=== PATIENT | male | born 1980 | race Caucasian/White ===

== ENCOUNTER 2018-11-19 07:47 | Inpatient (IN) | payer OTHER ==
[2018-11-19] MEDS ORDERED: KETOROLAC 30 MG/ML 1 ML VIAL IVP STA (08:27)
[2018-11-19] MEDS ORDERED: ONDANSETRON 4 MG/2 ML VIAL IVP STA (08:27)
[2018-11-19] MEDS ORDERED: SODIUM CHLORIDE 0.9% 1,000 ML IV STA ×2 (08:27)
--- NOTE | 2018-11-19 08:33 | ED ---
Abdominal Pain HPI - General Source: patient, RN notes reviewed, old records reviewed Mode of arrival: ambulatory Limitations: no limitations <Nettie Olson - Last Filed: 11/19/18 10:58> <Delicia Quinones - Last Filed: 11/19/18 12:49> - General Chief Complaint: Abdominal Pain Stated Complaint: Poss herina Time Seen by Provider: 11/19/18 08:00 - History of Present Illness Initial Comments: 38-year-old male presents to the emergency department today with complaints of LLQ pain. Patient reports that symptoms started yesterday evening while he was at work. He states he developed a fever last night. After taking Motrin to see her subsided. Patient states that he's had frequent urination and complains of pain with urinating and pain with passing gas. He states he's had a normal bowel movement. He denies any significant past medical history. Patient states that he has no fevers or chills at this time. (Nettie Olson) - Related Data Allergies Allergy/AdvReac Type Severity Reaction Status Date / Time No Known Allergies Allergy Verified 11/19/18 11:00 Review of Systems ROS Other: All systems not noted in ROS Statement are negative. <Nettie Olson - Last Filed: 11/19/18 10:58> ROS Other: All systems not noted in ROS Statement are negative. <Delicia Quinones - Last Filed: 11/19/18 12:49> ROS Statement: Those systems with pertinent positive or pertinent negative responses have been documented in the HPI. Past Medical History Past Medical History: No Reported History History of Any Multi-Drug Resistant Organisms: None Reported Past Surgical History: Orthopedic Surgery Additional Past Surgical History / Comment(s): KNEE SURGERY Past Psychological History: No Psychological Hx Reported Smoking Status: Heavy tobacco smoker Past Alcohol Use History: None Reported Past Drug Use History: None Reported <Nettie Olson - Last Filed: 11/19/18 10:58> General Exam Limitations: no limitations General appearance: alert, in no apparent distress Head exam: Present: atraumatic, normocephalic, normal inspection Eye exam: Present: normal appearance, PERRL, EOMI. Absent: scleral icterus, conjunctival injection, periorbital swelling ENT exam: Present: normal exam, mucous membranes moist Neck exam: Present: normal inspection. Absent: tenderness, meningismus, lymphadenopathy Respiratory exam: Present: normal lung sounds bilaterally. Absent: respiratory distress, wheezes, rales, rhonchi, stridor Cardiovascular Exam: Present: regular rate, normal rhythm, normal heart sounds. Absent: systolic murmur, diastolic murmur, rubs, gallop, clicks GI/Abdominal exam: Present: soft, tenderness (Left lower quadrant tenderness. No guarding.), normal bowel sounds. Absent: distended, guarding, rebound, rigid Extremities exam: Present: normal inspection, full ROM, normal capillary refill. Absent: tenderness, pedal edema, joint swelling, calf tenderness Back exam: Present: normal inspection Neurological exam: Present: alert, oriented X3, CN II-XII intact Psychiatric exam: Present: normal affect, normal mood Skin exam: Present: warm, dry, intact, normal color. Absent: rash <Nettie Olson - Last Filed: 11/19/18 10:58> - General Exam Comments Initial Comments: 38-year-old male. Alert and oriented. No significant distress. (Nettie Olson) Course Vital Signs 11/19/18 11/19/18 11/19/18 07:47 08:58 11:16 Temperature 98.2 F 98.7 F Pulse Rate 108 H 93 88 Respiratory 18 16 18 Rate Blood Pressure 134/96 130/85 127/86 O2 Sat by Pulse 99 98 99 Oximetry Medical Decision Making - Lab Data Result diagrams: 11/19/18 08:09 11/19/18 08:09 - Radiology Data Radiology results: report reviewed <Nettie Olson - Last Filed: 11/19/18 10:58> - Lab Data Result diagrams: 11/19/18 08:09 11/19/18 08:09 <Delicia Quinones - Last Filed: 11/19/18 12:49> - Medical Decision Making Particular male presents with fever complaints of left lower quadrant abdominal pain. Patient has had fever yesterday. Patient has had no significant past medical history. On exam is tender and guarding of the left lower quadrant. Patient CT shows evidence of diverticulitis with a small amount of peritoneal air. Patient was started on Zosyn. White blood cell count elevated at 13,000. Patient will be admitted with consult to surgery. Dr. Quinones discussed case with Dr. Hurd has not. (Nettie Olson) Patient care was discussed with Dr. Matamoros the admitting physician and Dr. Sparkle brewer consulting surgeon. Patient admitted for acute diverticulitis with microperforation with no peritonitis. (Delicia Quinones) - Lab Data Lab Results 11/19/18 11/19/18 11/19/18 Range/Units 08:09 08:09 08:09 WBC 13.0 H (3.8-10.6) k/uL RBC 5.80 (4.30-5.90) m/uL Hgb 15.2 (13.0-17.5) gm/dL Hct 44.9 (39.0-53.0) % MCV 77.4 L (80.0-100.0) fL MCH 26.3 (25.0-35.0) pg MCHC 33.9 (31.0-37.0) g/dL RDW 13.5 (11.5-15.5) % Plt Count 228 (150-450) k/uL Neutrophils % 77 % Lymphocytes % 13 % Monocytes % 7 % Eosinophils % 1 % Basophils % 0 % Neutrophils # 10.0 H (1.3-7.7) k/uL Lymphocytes # 1.8 (1.0-4.8) k/uL Monocytes # 0.9 (0-1.0) k/uL Eosinophils # 0.2 (0-0.7) k/uL Basophils # 0.0 (0-0.2) k/uL Sodium 140 (137-145) mmol/L Potassium 4.3 (3.5-5.1) mmol/L Chloride 106 (98-107) mmol/L Carbon Dioxide 25 (22-30) mmol/L Anion Gap 9 mmol/L BUN 10 (9-20) mg/dL Creatinine 0.96 (0.66-1.25) mg/dL Est GFR (CKD-EPI)AfAm >90 (>60 ml/min/1.73 sqM) Est GFR (CKD-EPI)NonAf >90 (>60 ml/min/1.73 sqM) Glucose 107 H (74-99) mg/dL Calcium 9.6 (8.4-10.2) mg/dL Total Bilirubin 1.7 H (0.2-1.3) mg/dL AST 31 (17-59) U/L ALT 68 (21-72) U/L Alkaline Phosphatase 70 (38-126) U/L Total Protein 7.3 (6.3-8.2) g/dL Albumin 4.7 (3.5-5.0) g/dL Amylase 49 (30-110) U/L Lipase 86 (23-300) U/L Urine Color Yellow Urine Appearance Clear (Clear) Urine pH 7.0 (5.0-8.0) Ur Specific [place] 1.022 (1.001-1.035) Urine Protein Trace H (Negative) Urine Glucose (UA) Negative (Negative) Urine Ketones 1+ H (Negative) Urine Blood Negative (Negative) Urine Nitrite Negative (Negative) Urine Bilirubin Negative (Negative) Urine Urobilinogen <2.0 (<2.0) mg/dL Ur Leukocyte Esterase Negative (Negative) - Radiology Data Laboratory changes in left lower quadrant adjacent to segment of thickened sigmoid colon findings compatible with acute diverticulitis. Single punctate area of air with inflammatory change could be a loculated extraluminal air or within the diverticulum. Free air not otherwise identified. Incidental note made of possible gallstone at the neck of the gallbladder. (Nettie Olson) Disposition Is patient prescribed a controlled substance at d/c from ED?: No Time of Disposition: 11:00 <Nettie Olson - Last Filed: 11/19/18 10:58> <Delicia Quinones - Last Filed: 11/19/18 12:49> Clinical Impression: Leukocytosis, Diverticulitis of intestine with perforation Disposition: ADMITTED IP TO THIS HOSP Condition: Stable Referrals: [facility],Clinic [Primary Care Provider] - 1-2 days
[2018-11-19 08:35] LABS: Basophils % (A) 0 %; Eosinophils # (A) 0.2 k/uL (0-0.7); Eosinophils % (A) 1 %; HCT 44.9 % (39.0-53.0); HGB 15.2 gm/dL (13.0-17.5); Lymphocytes # (A) 1.8 k/uL (1.0-4.8); Lymphocytes % (A) 13 %; MCH 26.3 pg (25.0-35.0); MCHC 33.9 g/dL (31.0-37.0); MCV 77.4 fL (80.0-100.0); Mean Platelet Volume 6.9; Monocytes # (A) 0.9 k/uL (0-1.0); Monocytes % (A) 7 %; Neutrophils % (A) 77 %; Platelet Count 228 k/uL (150-450); RDW 13.5 % (11.5-15.5)
[2018-11-19 08:38] LABS: Appearance,Urine Clear (Clear); Bilirubin,Urine Negative (Negative); Blood,Urine Negative (Negative); Color,Urine Yellow; Glucose,Urine (UA) Negative (Negative); Ketones,Urine 1+ (Negative); Leukocyte Esterase,Urine Negative (Negative); Nitrite,Urine Negative (Negative); Protein,Urine Trace (Negative); Specific Gravity,Urine 1.022 (1.001-1.035); Urobilinogen,Urine <2.0 mg/dL (<2.0)
[2018-11-19 08:44] LABS: ALT 68 U/L (21-72); AST 31 U/L (17-59); Albumin 4.7 g/dL (3.5-5.0); Alkaline Phosphatase 70 U/L (38-126); Amylase 49 U/L (30-110); Anion Gap 9 mmol/L; Blood Urea Nitrogen 10 mg/dL (9-20); Calcium 9.6 mg/dL (8.4-10.2); Carbon Dioxide 25 mmol/L (22-30); Chloride 106 mmol/L (98-107); Glucose 107 mg/dL (74-99); Lipase 86 U/L (23-300); Potassium 4.3 mmol/L (3.5-5.1); Sodium 140 mmol/L (137-145); Total Bilirubin 1.7 mg/dL (0.2-1.3); Total Protein 7.3 g/dL (6.3-8.2)
--- NOTE | 2018-11-19 10:52 | CT ---
EXAMINATION TYPE: CT abdomen pelvis w con DATE OF EXAM: 11/19/2018 COMPARISON: None INDICATION: LLQ pain for 2 days with nausea DLP: 1750.9 mGycm, Automated exposure control for dose reduction was used. CONTRAST: 100 mL of Isovue 300. Study performed without Oral Contrast TECHNIQUE: Axial images were obtained from above the diaphragm to the pubic rami in the axial plane a t 5 mm thick sections. Reconstructed images are reviewed on the computer in the coronal plane. FINDINGS: Limited CT sections are obtained the lung bases. The lung bases are clear. CT ABDOMEN: Liver: There is likely some mild fatty change in the liver. Spleen: Normal Pancreas: Normal Adrenal glands: The adrenal glands are normal. Gallbladder: Small gallstone is suspected at the neck of the gallbladder. Series 201 image 27. No per icholecystic fluid or obvious wall thickening is evident. Kidneys: No masses are evident. No hydronephrosis is present. No cysts are present. Delayed images were obtained through the kidneys, which remain unremarkable. Aorta: Normal Inferior vena cava: Normal. CT PELVIS: Loops of bowel within the abdomen are normal. Within the pelvis or inflammatory changes adjacent to a thickened loop of sigmoid colon. Tiny amount of air is adjacent may be within a diverticulum. This could be loculated within the inflammatory change. Free air is not otherwise identified within the a bdomen. Series 201 image 673 findings are highly suggestive for acute diverticulitis. Appendix: Normal as visualized. Urinary bladder: Normal. Genitourinary structures: Prostate is unremarkable. Osseous structures: No suspicious lytic or sclerotic lesions. IMPRESSIONS: 1. Inflammatory change in the left lower quadrant adjacent to segment of thickened sigmoid colon. Fi ndings are compatible with acute diverticulitis. Single punctate area of air within this inflammatory change could be loculated extraluminal air or air within the diverticulum. Free air not otherwise id entified. 2. Report was called to the emergency room physician by Dr. Brian by telephone at time of interpret ation 1046 hours 11/19/2018. 3. Incidental note made of possible gallstone at the neck of the gallbladder.
[2018-11-19] MEDS ORDERED: NALOXONE 0.4 MG/ML 1 ML VIAL IV PRN ×2 (10:54→11:00)
[2018-11-19] MEDS ORDERED: MORPHINE SULFATE 4 MG/ML SYRINGE IVP STA (10:58)
[2018-11-19] MEDS ORDERED: PIPERACILLIN-TAZOBACTAM 3.375 GM in SODIUM CHLORIDE 0.9% 100 ML IVPB STA (10:58)
--- NOTE | 2018-11-19 12:05 | P.GSCN ---
History of Present Illness Consult date: 11/19/18 Reason for Consult: Diverticulitis with microperforation History of present illness: The patient's a 38-year-old man who presented with left lower quadrant abdominal pain. He noticed that yesterday while working. It progressively got worse. He had a bad headache and fever. He tried to wait it out but was worse this morning so came into the emergency department. Workup shows evidence of diverticulitis with a microperforation. No previous episodes of diverticulitis. No family history of GI malignancy or inflammatory bowel disease. His mother does have diverticular disease. Review of Systems All systems: negative Past Medical History Past Medical History: No Reported History History of Any Multi-Drug Resistant Organisms: None Reported Past Surgical History: Orthopedic Surgery Additional Past Surgical History / Comment(s): KNEE SURGERY Past Psychological History: No Psychological Hx Reported Smoking Status: Heavy tobacco smoker Past Alcohol Use History: None Reported Past Drug Use History: None Reported Medications and Allergies Home Medications Medication Instructions Recorded Confirmed Type Ibuprofen [Motrin] 800 mg PO DAILY 11/19/18 11/19/18 History Allergies Allergy/AdvReac Type Severity Reaction Status Date / Time No Known Allergies Allergy Verified 11/19/18 11:00 Surgical - Exam Osteopathic Statement: *. No significant issues noted on an osteopathic structural exam other than those noted in the History and Physical/Consult. Vital Signs Temp Pulse Resp BP Pulse Ox 98.2 F 108 H 18 134/96 99 11/19/18 07:47 11/19/18 07:47 11/19/18 07:47 11/19/18 07:47 11/19/18 07:47 - General well developed, well nourished, no distress - Eyes normal ocular movement - ENT no hearing loss - Neck trachea midline - Respiratory normal expansion, clear to auscultation - Cardiovascular Rhythm: regular - Abdomen Abdomen: soft, tender (Right lower quadrant with voluntary guarding), bowel sounds (Hypoactive) Results - Labs 11/19/18 08:09 11/19/18 08:09 Abnormal Lab Results - Last 24 Hours (Table) 11/19/18 11/19/18 11/19/18 Range/Units 08:09 08:09 08:09 WBC 13.0 H (3.8-10.6) k/uL MCV 77.4 L (80.0-100.0) fL Neutrophils # 10.0 H (1.3-7.7) k/uL Glucose 107 H (74-99) mg/dL Total Bilirubin 1.7 H (0.2-1.3) mg/dL Urine Protein Trace H (Negative) Urine Ketones 1+ H (Negative) Diabetes panel 11/19/18 Range/Units 08:09 Sodium 140 (137-145) mmol/L Potassium 4.3 (3.5-5.1) mmol/L Chloride 106 (98-107) mmol/L Carbon Dioxide 25 (22-30) mmol/L BUN 10 (9-20) mg/dL Creatinine 0.96 (0.66-1.25) mg/dL Glucose 107 H (74-99) mg/dL Calcium 9.6 (8.4-10.2) mg/dL AST 31 (17-59) U/L ALT 68 (21-72) U/L Alkaline Phosphatase 70 (38-126) U/L Total Protein 7.3 (6.3-8.2) g/dL Albumin 4.7 (3.5-5.0) g/dL Calcium panel 11/19/18 Range/Units 08:09 Calcium 9.6 (8.4-10.2) mg/dL Albumin 4.7 (3.5-5.0) g/dL Pituitary panel 11/19/18 Range/Units 08:09 Sodium 140 (137-145) mmol/L Potassium 4.3 (3.5-5.1) mmol/L Chloride 106 (98-107) mmol/L Carbon Dioxide 25 (22-30) mmol/L BUN 10 (9-20) mg/dL Creatinine 0.96 (0.66-1.25) mg/dL Glucose 107 H (74-99) mg/dL Calcium 9.6 (8.4-10.2) mg/dL Adrenal panel 11/19/18 Range/Units 08:09 Sodium 140 (137-145) mmol/L Potassium 4.3 (3.5-5.1) mmol/L Chloride 106 (98-107) mmol/L Carbon Dioxide 25 (22-30) mmol/L BUN 10 (9-20) mg/dL Creatinine 0.96 (0.66-1.25) mg/dL Glucose 107 H (74-99) mg/dL Calcium 9.6 (8.4-10.2) mg/dL Total Bilirubin 1.7 H (0.2-1.3) mg/dL AST 31 (17-59) U/L ALT 68 (21-72) U/L Alkaline Phosphatase 70 (38-126) U/L Total Protein 7.3 (6.3-8.2) g/dL Albumin 4.7 (3.5-5.0) g/dL - Imaging CT scan - abdomen: report reviewed, image reviewed Assessment and Plan (1) Diverticulitis of intestine with perforation Current Visit: Yes Status: Acute Code(s): K57.80 - DVTRCLI OF INTEST, PART UNSP, W PERF AND ABSCESS W/O BLEED SNOMED Code(s): 117680530 (2) Leukocytosis Current Visit: Yes Status: Acute Code(s): D72.829 - ELEVATED WHITE BLOOD CELL COUNT, UNSPECIFIED SNOMED Code(s): 374289287 Plan: Recommend admission, IV antibiotics, bowel rest, serial lab and x-ray. Serial exams. I did discuss diverticulitis with the patient and usual course with medical therapy. He is currently nonsurgical. Further recommendations to follow
[2018-11-19] MEDS: KETOROLAC 30 MG/ML 1 ML VIAL IVP PRN ×2 (13:37→19:49)
[2018-11-19 14:12] VITALS: BMI 33.5
--- NOTE | 2018-11-19 15:30 | P.HPIM ---
History of Present Illness Chief Complaint: Left low quadrant abdominal pain This very pleasant 38 GENTLEMAN who comes in for above-mentioned complaints. Patient says that he started noticing the pain in the left low quadrant yesterday while at work and he said that he probably aggravated at work. Last night he started to have fever and nausea. He was hurting in his left low quadrant while having a bowel movement and while urinating. Symptoms didn't improve by infectious for worsening so this morning he came to the ER for further urology management. Patient otherwise does not complain of any chest pain racing heart, no cough no shortness of breath, no vomiting, no diarrhea constipation, no bloody bowel movements, noting numbness of any extreme 70s, and additional rash ER course-patient's vitals were stable. Blood work was done which showed WBC 13.0 hemoglobin 15.2 platelets 228 sodium 140 potassium 4.3 B1 10 creatinine 0.96 GFR more than 90 total bilirubin was 1.7 AST 31 ALT 68 alk phos 70 UA was negative for any infection. CT of the abdomen pelvis was done which showed acute diverticulitis and showed possible microperforation. Patient was thus started on IV fluids and antibiotics he was given pain medications for pain control and admitted to the hospitalist service a further admission and management Review of Systems All systems: negative Past Medical History Past Medical History: No Reported History History of Any Multi-Drug Resistant Organisms: None Reported Past Surgical History: Orthopedic Surgery Additional Past Surgical History / Comment(s): KNEE SURGERY Past Psychological History: No Psychological Hx Reported Smoking Status: Heavy tobacco smoker Past Alcohol Use History: None Reported Past Drug Use History: None Reported Additional Drug Use History / Comment(s): 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 Medications and Allergies Home Medications Medication Instructions Recorded Confirmed Type Ibuprofen [Motrin] 800 mg PO DAILY 11/19/18 11/19/18 History Allergies Allergy/AdvReac Type Severity Reaction Status Date / Time No Known Allergies Allergy Verified 11/19/18 11:00 Physical Exam Vitals: Vital Signs Temp Pulse Pulse Resp BP BP Pulse Ox 11/19/18 13:41 98.3 F 86 16 123/86 97 11/19/18 13:12 98.0 F 80 16 123/96 99 11/19/18 11:16 98.7 F 88 18 127/86 99 11/19/18 08:58 93 16 130/85 98 11/19/18 07:47 98.2 F 108 H 18 134/96 99 Intake and Output 11/19/18 11/19/18 11/19/18 06:59 14:59 22:59 Intake Total 50 Balance 50 Intake: Intake, IV Titration 50 Amount Piperacillin-Tazobactam 3 50 .375 gm In Sodium Chloride 0.9% 100 ml @ 200 mls/hr IVPB ONCE STA Rx#:[id number] Other: Weight 121.563 kg On exam, alert and oriented x3. HEENT: Conjunctivae normal. eyes normal. NECK: No JVD. No thyroid enlargement. No LNs CARDIOVASCULAR: S1, S2 muffled. No murmur RESPIRATION: Breath sounds diminished in the bases. No rhonchi or crackles. No bronchial breathing. ABDOMEN: Soft, tender is in the left low quadrant No guarding. no masses palpable. No ascites, No hepatosplenomegaly.Bowel sounds heard. LEGS: No edema. no swelling NERVOUS SYSTEM: Cranial N 2-12 grossly normal. Moves all 4 limbs. No focal defi cits. No sensory deficit. No signs of cerebellar dysfucntion. Skin: no ulcer no rash Results CBC & Chem 7: 11/19/18 08:09 11/19/18 08:09 Labs: Abnormal Lab Results - Last 24 Hours (Table) 11/19/18 11/19/18 11/19/18 Range/Units 08:09 08:09 08:09 WBC 13.0 H (3.8-10.6) k/uL MCV 77.4 L (80.0-100.0) fL Neutrophils # 10.0 H (1.3-7.7) k/uL Glucose 107 H (74-99) mg/dL Total Bilirubin 1.7 H (0.2-1.3) mg/dL Urine Protein Trace H (Negative) Urine Ketones 1+ H (Negative) Thrombosis Risk Factor Assmnt - Choose All That Apply Any of the Below Risk Factors Present?: Yes Each Factor Represents 1 point: Obesity (BMI >25) Other Risk Factors: No Other congenital or acquired thrombophilia - If yes, enter type in comment: No Thrombosis Risk Factor Assessment Total Risk Factor Score: 1 Thrombosis Risk Factor Assessment Level: Low Risk Assessment and Plan Assessment: - Acute diverticulitis with microperforation - Left low quadrant pain secondary to above Plan - Patient was admitted to [facility] with telemetry - Continue pain control - Patient was on Zosyn. We'll change Zosyn to Invanz - Continue IV fluids - Advancement of diet as per surgery team - DVT and GI prophylaxis - We'll order for lab work in the morning - Expected length of stay: 2 midnights - Patient is full code Time with Patient: Greater than 30
[2018-11-19] MEDS: MORPHINE SULFATE 4 MG/ML SYRINGE IV PRN ×2 (15:36→22:43)
[2018-11-19] MEDS: ERTAPENEM 1 GM in SODIUM CHLORIDE 0.9% 50 ML IVPB SCH (17:12)
[2018-11-19] MEDS: SODIUM CHLORIDE 0.9% 1,000 ML IV SCH ×2 (19:49→19:58)
[2018-11-19] MEDS ORDERED: PIPERACILLIN-TAZOBACTAM 3.375 GM in SODIUM CHLORIDE 0.9% 100 ML IVPB SCH (20:00)
[2018-11-19] MEDS: ONDANSETRON 4 MG/2 ML VIAL IVP PRN (22:44)
[2018-11-20] MEDS: KETOROLAC 30 MG/ML 1 ML VIAL IVP PRN ×3 (04:08→19:08)
[2018-11-20] MEDS: SODIUM CHLORIDE 0.9% 1,000 ML IV SCH ×2 (04:08→08:00)
[2018-11-20 06:42] LABS: HCT 39.7 % (39.0-53.0); HGB 12.6 gm/dL (13.0-17.5); MCH 25.4 pg (25.0-35.0); MCHC 31.7 g/dL (31.0-37.0); MCV 80.1 fL (80.0-100.0); Mean Platelet Volume 7.3; Platelet Count 193 k/uL (150-450); RBC 4.95 m/uL (4.30-5.90); RDW 13.9 % (11.5-15.5); WBC 10.9 k/uL (3.8-10.6)
[2018-11-20 06:57] LABS: Anion Gap 9 mmol/L; Blood Urea Nitrogen 9 mg/dL (9-20); Calcium 8.6 mg/dL (8.4-10.2); Carbon Dioxide 23 mmol/L (22-30); Chloride 107 mmol/L (98-107); Glucose 98 mg/dL (74-99); Potassium 4.1 mmol/L (3.5-5.1); Sodium 139 mmol/L (137-145)
[2018-11-20] MEDS: ONDANSETRON 4 MG/2 ML VIAL IVP PRN (07:53)
[2018-11-20] MEDS: PANTOPRAZOLE 40 MG/10 ML VIAL IV SCH (07:55)
[2018-11-20] MEDS: MORPHINE SULFATE 4 MG/ML SYRINGE IV PRN (07:57)
[2018-11-20] MEDS ORDERED: HYDROmorphone 0.5 MG/0.5 ML SYRINGE IVP PRN (10:15)
--- NOTE | 2018-11-20 10:18 | P.PN ---
Subjective Progress Note Date: 11/20/18 Principal diagnosis: Diverticulitis with microperforation The patient is feeling some better today. He does have some pain with ambulation. He is requesting the morphine be changed. He gets some nausea with morphine. It does help with the pain. No nausea or vomiting. He is hungry. Passing flatus. Objective - Vital Signs Vital signs: Vital Signs Temp 98.6 F 11/20/18 07:00 Pulse 94 11/20/18 08:24 Resp 16 11/20/18 07:00 BP 130/76 11/20/18 07:00 Pulse Ox 97 11/20/18 07:00 Intake & Output 11/19/18 11/20/18 11/20/18 18:59 06:59 18:59 Intake Total 50 350 Balance 50 350 Weight 121.563 kg Intake: Intake, IV Titration 50 Amount Piperacillin-Tazobactam 3 50 .375 gm In Sodium Chloride 0.9% 100 ml @ 200 mls/hr IVPB ONCE STA Rx#:[id number] Oral 350 Other: Voiding Method Toilet # Voids 1 - Constitutional General appearance: Present: cooperative, no acute distress - Respiratory Respiratory: bilateral: CTA - Gastrointestinal General gastrointestinal: Present: normal bowel sounds, soft, tenderness (Mild right lower quadrant tenderness without guarding or rebound) - Labs CBC & Chem 7: 11/20/18 06:05 11/20/18 06:05 Labs: Abnormal Lab Results - Last 24 Hours (Table) 11/20/18 Range/Units 06:05 WBC 10.9 H (3.8-10.6) k/uL Hgb 12.6 L (13.0-17.5) gm/dL Assessment and Plan (1) Diverticulitis of intestine with perforation Current Visit: Yes Status: Acute Code(s): K57.80 - DVTRCLI OF INTEST, PART UNSP, W PERF AND ABSCESS W/O BLEED SNOMED Code(s): 645162263 (2) Leukocytosis Current Visit: Yes Status: Acute Code(s): D72.829 - ELEVATED WHITE BLOOD CELL COUNT, UNSPECIFIED SNOMED Code(s): 841964524 Plan: We'll change his pain medication. Start him on some clear liquids. Slowly advance that to a full liquid if tolerated. Continue IV antibiotics. Progressing well
--- NOTE | 2018-11-20 13:00 | P.PN ---
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 Patient says that he started noticing the pain in the left low quadrant yesterday while at work and he said that he probably aggravated at work. He started to have fever and nausea. He was hurting in his left low quadrant while having a bowel movement and while urinating. Symptoms didn't improve and are worsening worsening so this morning he came to the ER for further management. Patient otherwise does not complain of any chest pain no racing heart, no cough no shortness of breath, no vomiting, no diarrhea constipation, no bloody bowel movements, noting numbness of any extremities and no itch or rash. On 11/20/2018 Patient says that he still has pain in the left low quadrant but better than yesterday. He is tolerating clear liquids for now. No fevers or chills Objective - Vital Signs Vital signs: Vital Signs Temp 98.6 F 11/20/18 07:00 Pulse 94 11/20/18 08:24 Resp 16 11/20/18 07:00 BP 130/76 11/20/18 07:00 Pulse Ox 97 11/20/18 07:00 Intake & Output 11/19/18 11/20/18 11/20/18 18:59 06:59 18:59 Intake Total 50 350 Balance 50 350 Weight 121.563 kg Intake: Intake, IV Titration 50 Amount Piperacillin-Tazobactam 3 50 .375 gm In Sodium Chloride 0.9% 100 ml @ 200 mls/hr IVPB ONCE STA Rx#:[id number] Oral 350 Other: Voiding Method Toilet # Voids 1 - Exam On exam, alert and oriented x3. HEENT: Conjunctivae normal. eyes normal. NECK: No JVD. No thyroid enlargement. No LNs CARDIOVASCULAR: S1, S2 muffled. No murmur RESPIRATION: Breath sounds diminished in the bases. No rhonchi or crackles. No bronchial breathing. ABDOMEN: Soft, there is a left low quadrant No guarding. no masses palpable. No ascites, No hepatosplenomegaly.Bowel sounds heard. LEGS: No edema. no swelling NERVOUS SYSTEM: Cranial N 2-12 grossly normal. Moves all 4 limbs. No focal deficits. No sensory deficit. No signs of cerebellar dysfucntion. Skin: no ulcer no rash - Labs CBC & Chem 7: 11/20/18 06:05 11/20/18 06:05 Labs: Abnormal Lab Results - Last 24 Hours (Table) 11/20/18 Range/Units 06:05 WBC 10.9 H (3.8-10.6) k/uL Hgb 12.6 L (13.0-17.5) gm/dL Assessment and Plan Assessment: - Acute diverticulitis with microperforation - Left low quadrant pain secondary to above Plan 11/19/2018 - Patient was admitted to [facility] with telemetry - Continue pain control - Patient was on Zosyn. We'll change Zosyn to Invanz - Continue IV fluids - Advancement of diet as per surgery team - DVT and GI prophylaxis - We'll order for lab work in the morning - Expected length of stay: 2 midnights - Patient is full code 11/20/2018 - Continue Invanz - Patient says that he's feeling nauseous on morphine. We'll try to switch her to Dilaudid and see how he does - Continue clear liquids and advancement of food as tolerated - Continue IV fluids - We'll monitor lab work in the morning Time with Patient: Greater than 30
[2018-11-20] MEDS: ERTAPENEM 1 GM in SODIUM CHLORIDE 0.9% 50 ML IVPB SCH (15:27)
[2018-11-20] MEDS: HYDROmorphone 1 MG/ML 1 ML SYRINGE IVP PRN ×2 (17:00→22:29)
[2018-11-21] MEDS: KETOROLAC 30 MG/ML 1 ML VIAL IVP PRN ×3 (05:57→18:02)
[2018-11-21 07:45] LABS: HCT 37.4 % (39.0-53.0); HGB 11.9 gm/dL (13.0-17.5); MCH 25.2 pg (25.0-35.0); MCHC 31.7 g/dL (31.0-37.0); MCV 79.6 fL (80.0-100.0); Mean Platelet Volume 7.5; Platelet Count 202 k/uL (150-450); RBC 4.71 m/uL (4.30-5.90); RDW 13.5 % (11.5-15.5); WBC 8.8 k/uL (3.8-10.6)
[2018-11-21 07:55] LABS: Anion Gap 7 mmol/L; Blood Urea Nitrogen 8 mg/dL (9-20); Calcium 8.9 mg/dL (8.4-10.2); Carbon Dioxide 25 mmol/L (22-30); Chloride 106 mmol/L (98-107); Glucose 92 mg/dL (74-99); Potassium 4.5 mmol/L (3.5-5.1); Sodium 138 mmol/L (137-145)
[2018-11-21] MEDS: PANTOPRAZOLE 40 MG/10 ML VIAL IV SCH (11:35)
[2018-11-21] MEDS: HYDROmorphone 1 MG/ML 1 ML SYRINGE IVP PRN ×2 (13:31→21:18)
[2018-11-21] MEDS: ERTAPENEM 1 GM in SODIUM CHLORIDE 0.9% 50 ML IVPB SCH (16:47)
--- NOTE | 2018-11-21 21:39 | P.PN ---
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 Patient says that he started noticing the pain in the left low quadrant yesterday while at work and he said that he probably aggravated at work. He started to have fever and nausea. He was hurting in his left low quadrant while having a bowel movement and while urinating. Symptoms didn't improve and are worsening worsening so this morning he came to the ER for further management. Patient otherwise does not complain of any chest pain no racing heart, no cough no shortness of breath, no vomiting, no diarrhea constipation, no bloody bowel movements, noting numbness of any extremities and no itch or rash. On 11/20/2018 Patient says that he still has pain in the left low quadrant but better than yesterday. He is tolerating clear liquids for now. No fevers or chills 11/21/28 Pt says abd pain getting better tolerating liquid diet Objective - Vital Signs Vital signs: Vital Signs Temp 98.5 F 11/21/18 15:00 Pulse 85 11/21/18 15:00 Resp 16 11/21/18 16:00 BP 130/84 11/21/18 15:00 Pulse Ox 96 11/21/18 15:00 Intake & Output 11/21/18 11/21/18 11/22/18 06:59 18:59 06:59 Intake Total 250 Balance 250 Intake: Oral 250 Other: Voiding Method Toilet Toilet # Voids 1 3 - Exam On exam, alert and oriented x3. HEENT: Conjunctivae normal. eyes normal. NECK: No JVD. No thyroid enlargement. No LNs CARDIOVASCULAR: S1, S2 muffled. No murmur RESPIRATION: Breath sounds diminished in the bases. No rhonchi or crackles. No bronchial breathing. ABDOMEN: Soft, there is a left low quadrant No guarding. no masses palpable. No ascites, No hepatosplenomegaly.Bowel sounds heard. LEGS: No edema. no swelling NERVOUS SYSTEM: Cranial N 2-12 grossly normal. Moves all 4 limbs. No focal deficits. No sensory deficit. No signs of cerebellar dysfucntion. Skin: no ulcer no rash - Labs CBC & Chem 7: 11/21/18 06:51 11/21/18 06:51 Labs: Abnormal Lab Results - Last 24 Hours (Table) 11/21/18 11/21/18 Range/Units 06:51 06:51 Hgb 11.9 L (13.0-17.5) gm/dL Hct 37.4 L (39.0-53.0) % MCV 79.6 L (80.0-100.0) fL BUN 8 L (9-20) mg/dL Microbiology - Last 24 Hours (Table) 11/19/18 11:15 Blood Culture - Preliminary Blood No Growth after 48 hours Assessment and Plan Assessment: - Acute diverticulitis with microperforation - Left low quadrant pain secondary to above Plan 11/19/2018 - Patient was admitted to [facility] with telemetry - Continue pain control - Patient was on Zosyn. We'll change Zosyn to Invanz - Continue IV fluids - Advancement of diet as per surgery team - DVT and GI prophylaxis - We'll order for lab work in the morning - Expected length of stay: 2 midnights - Patient is full code 11/20/2018 - Continue Invanz - Patient says that he's feeling nauseous on morphine. We'll try to switch her to Dilaudid and see how he does - Continue clear liquids and advancement of food as tolerated - Continue IV fluids - We'll monitor lab work in the morning 11/21/18 - Pt on invanz - Advance diet as per surgery recs - At tthe time of dc anx can be transitioned to oral or can be dced on iv invanz depending on the clinical condition Time with Patient: Less than 30
[2018-11-22 02:52] VITALS: RESP 18
[2018-11-22 07:43] VITALS: BP 127/77; PULSE 83; TEMP 98.4
[2018-11-22] MEDS: HYDROmorphone 1 MG/ML 1 ML SYRINGE IVP PRN ×2 (08:18→12:52)
[2018-11-22] MEDS: PANTOPRAZOLE 40 MG/10 ML VIAL IV SCH (08:19)
[2018-11-22 08:28] LABS: Anion Gap 8 mmol/L; Blood Urea Nitrogen 8 mg/dL (9-20); Carbon Dioxide 25 mmol/L (22-30); Chloride 106 mmol/L (98-107); Glucose 92 mg/dL (74-99); Potassium 4.3 mmol/L (3.5-5.1); Sodium 139 mmol/L (137-145)
[2018-11-22] MEDS: KETOROLAC 30 MG/ML 1 ML VIAL IVP PRN (09:57)
[2018-11-22 10:25] LABS: HCT 39.1 % (39.0-53.0); HGB 12.8 gm/dL (13.0-17.5); MCH 25.9 pg (25.0-35.0); MCHC 32.7 g/dL (31.0-37.0); MCV 79.2 fL (80.0-100.0); Mean Platelet Volume 7.6; Platelet Count 235 k/uL (150-450); RBC 4.93 m/uL (4.30-5.90); RDW 13.6 % (11.5-15.5); WBC 7.4 k/uL (3.8-10.6)
== END 2018-11-22 14:48 | disposition home or self-care (01) | DRG 392 ==
LOC: EC 07:47 → 4SSUR 11:54
PROVIDERS: ADMIT Internal Medicine; ATTEND Internal Medicine
DX: K57.80 Diverticulitis of intestine, part unspecified, with perforation and abscess without bleeding (principal); F17.200 Nicotine dependence, unspecified, uncomplicated; D72.829 Elevated white blood cell count, unspecified
CPT/HCPCS: 36415; 74177; 80048; 80053; 81003; 82150; 83690; 85025; 85027; 87040; 96361; 96374; 96375; 96376; 99285

== ENCOUNTER → 2022-05-08 | Outpatient (CLI) | payer BC ==
[2022-05-08 14:21] LABS: HCT 48.9 % (39.6-50.0); HGB 15.6 g/dL (13.0-17.0); MCH 25.4 pg (27.0-32.0); MCHC 31.9 g/dL (32.0-37.0); MCV 79.8 fL (80.0-97.0); Mean Platelet Volume 10.2 fL (9.5-12.2); NRBC Per 100 WBC 0 /100 WBCS (0.0-0.0); Platelet Count 255 X 10*3/uL (140-440); RBC 6.13 X 10*6/uL (4.40-5.60); RDW 13.6 % (11.5-14.5); WBC 7.31 X 10*3/uL (4.50-10.00)
[2022-05-08 14:56] LABS: ALT 35 U/L (10-49); AST 17 U/L (14-35); African American GFR (CKD) 94.4 (60.0-200.0); Alkaline Phosphatase 67 U/L (41-126); BUN/Creat Ratio 10.71 Ratio (12.00-20.00); Blood Urea Nitrogen 12.1 mg/dL (9.0-27.0); Chloride 104 mmol/L (96-109); Chol/HDL Ratio 4.07 Ratio; Globulin 2.2 g/dL (1.6-3.3); Glucose 105 mg/dL (70-110); LDL Cholesterol,Calculated 98.1 mg/dL (0.0-131.0); Non-African American GFR(CKD) 81.4 (60.0-200.0); Potassium 4.6 mmol/L (3.5-5.5); Sodium 141 mmol/L (135-145); Total Protein 7.1 g/dL (6.2-8.2); VLDL Calculation 19.64 mg/dL (5.00-40.00)
== END | disposition home or self-care (01) ==
LOC: LABWHC1 08:42
PROVIDERS: ATTEND Family Medicine
DX: Z00.00 Encounter for general adult medical examination without abnormal findings (principal)
CPT/HCPCS: 36415; 80053; 80061; 84443; 85027